=== PATIENT | male | born 1950 | race Caucasian/White ===

== ENCOUNTER → 2021-03-29 | Outpatient (CLI) | payer MEDICARE, OTHER ==
--- NOTE | 2021-03-29 18:22 | RAD ---
EXAM: XR KNEE 1-2 VIEWS, XR KNEE_AP BILAT STANDING 03/29/2021 1:50 PM CLINICAL INDICATION: Bilateral knee pain COMPARISON: None TECHNIQUE: Standing AP view of the knees FINDINGS: There is medial compartment narrowing of the knees, severe on the left and moderate on the right. Small medial tiny lateral compartment osteophytes bilaterally. No acute fracture or malalignme nt. There are surgical clips at the medial left knee. IMPRESSION: Osteoarthrosis of the knees, greatest in medial compartments where it is severe on the l eft and moderate on the right. Electronically signed by: Zahida Amin MD (03/29/2021 6:19 PM) [id number]
== END ==
LOC: RAD 13:16
PROVIDERS: ATTEND Physician Assistant
DX: M17.0 Bilateral primary osteoarthritis of knee (principal); M25.762 Osteophyte, left knee; M25.761 Osteophyte, right knee
CPT/HCPCS: 73560; 73565